=== PATIENT | male | born 1945 | race Two or more races ===

== ENCOUNTER 2020-07-18 14:30 | Inpatient (IN) | payer MEDICARE, MEDICAID ==
[~2020-07-18] VITALS: Ht 167.6 cm; Wt 119.8 kg
[~2020-07-18 14:30] MED LIST: ALLO-51; ALPR0.25; AMLO-496 PO; ATOR10TA; DOXA2TAB; MET25T; METO25TA36 PO; OMEP20CA74 PO; PANT40TA2 PO; PRO125RS
[2020-07-18 15:23] LABS: Basophils # (auto) 0.1 10 ^3/uL (0-0.2); Basophils % (auto) 0.7 % (0.0-2.0); Eosinophils # (auto) 0.1 10 ^3/uL (0-0.8); Eosinophils % (auto) 1.7 % (0.0-7.0); Hematocrit 32.6 % (41.0-53.0); Hemoglobin 11.1 g/dL (13.5-17.5); Lymphocytes # (auto) 1.8 10 ^3/uL (0.4-5.4); Lymphocytes % (auto) 22.2 % (10.0-50.0); Mean Corpuscular Hemoglobin 31.4 pg (28.0-32.0); Mean Corpuscular Hgb Conc. 34.1 g/dL (32.0-36.0); Mean Corpuscular Volume 92.2 fL (80.0-100.0); Monocytes # (auto) 0.7 10 ^3/uL (0-1.3); Monocytes % (auto) 8.2 % (0.0-12.0); Neutrophils # (auto) 5.6 10 ^3/uL (1.6-8.6); Neutrophils % (auto) 67.2 % (37.0-80.0); Red Blood Cells 3.54 10^6/uL (4.5-5.90); Red Cell Distribution Width 14.7 % (11.8-14.3); White Blood Cell 8.3 10^3/uL (4.4-10.8)
[2020-07-18 16:43] LABS: Albumin 3.7 g/dL (3.4-5.0); Calcium 8.3 mg/dL (8.5-10.1); Potassium 3.8 mmol/L (3.5-5.1)
[2020-07-18 16:49] LABS: BUN/Creatinine Ratio 10.5; Bilirubin, Total 0.4 mg/dL (0.2-1.0); Total Protein 7.5 g/dL (6.4-8.2)
[2020-07-18 19:06] LABS: INR 0.97 (0.9-1.15)
[2020-07-18 19:06] LABS: Urine Bacteria NONE SEEN /hpf (None Seen); Urine Blood Negative /uL (Negative); Urine WBC 1 /hpf (0 - 3)
[2020-07-18 19:16] LABS: Alcohol, Urine < 3.0 mg/dL (0-10); Amphetamine Screen, Urine NEGATIVE (NEGATIVE); Barbiturate Scree,Urine NEGATIVE (NEGATIVE); Benzodiazephine Screen, Urine NEGATIVE (NEGATIVE); Cannabinoid Screen, Urine NEGATIVE (NEGATIVE); Cocaine Screen, Urine NEGATIVE (NEGATIVE); Opiate Scree,Urine NEGATIVE (NEGATIVE); Phencyclidine Screen, Urine NEGATIVE (NEGATIVE)
[2020-07-18] MEDS ORDERED: ASPirin 325 MG TAB PO ONE (20:00)
[2020-07-18] MEDS ORDERED: ENOXAPARIN SOD 100 MG/1 ML SYRINGE SC ONE (22:00)
[2020-07-18] MEDS ORDERED: MORPHINE SULFATE 4 MG/ML SYR/VIAL IV PRN (22:45)
[2020-07-18] MEDS ORDERED: NITROGLYCERIN 0.4 MG SL TAB SL PRN (22:45)
[2020-07-18] MEDS ORDERED: DOCUSATE SOD 100 MG CAP PO PRN (22:45)
[2020-07-18] MEDS ORDERED: ACETAMINOPHEN 325 MG TAB PO PRN (22:45)
[2020-07-18] MEDS ORDERED: HYDROcodone-ACET 5/325MG TAB PO PRN (22:45)
[2020-07-18] MEDS ORDERED: ONDANSETRON HCL 4 MG/2 ML VIAL IV PRN (22:45)
[2020-07-18] MEDS ORDERED: MORPHINE SULFATE INJECTION 2 MG/ML SYRG IV PRN (22:45)
[2020-07-18] MEDS ORDERED: hydrALAZINE HCL 20 MG/ML VL IV PRN (22:45)
[2020-07-19 02:13] VITALS: BP 133/90
[2020-07-19 05:00] VITALS: BP 142/87
[2020-07-19 05:11] VITALS: BP 133/90
[2020-07-19] MEDS: SODIUM CHLOR 0.9% PF (SALINE LOCK) 10ML VIAL/SYR IV SCH ×3 (06:01→21:25)
[2020-07-19 07:56] VITALS: BP 141/87
[2020-07-19 08:21] LABS: Basophils # (auto) 0 10 ^3/uL (0-0.2); Basophils % (auto) 0.4 % (0.0-2.0); Eosinophils # (auto) 0.2 10 ^3/uL (0-0.8); Eosinophils % (auto) 2.8 % (0.0-7.0); Hematocrit 29.7 % (41.0-53.0); Lymphocytes # (auto) 2.1 10 ^3/uL (0.4-5.4); Lymphocytes % (auto) 26.8 % (10.0-50.0); Mean Corpuscular Hemoglobin 31.2 pg (28.0-32.0); Mean Corpuscular Hgb Conc. 33.7 g/dL (32.0-36.0); Mean Corpuscular Volume 92.5 fL (80.0-100.0); Monocytes # (auto) 0.7 10 ^3/uL (0-1.3); Monocytes % (auto) 8.8 % (0.0-12.0); Neutrophils # (auto) 4.8 10 ^3/uL (1.6-8.6); Neutrophils % (auto) 61.2 % (37.0-80.0); Red Blood Cells 3.21 10^6/uL (4.5-5.90); Red Cell Distribution Width 14.7 % (11.8-14.3); White Blood Cell 7.8 10^3/uL (4.4-10.8)
[2020-07-19 08:37] LABS: Albumin 3.1 g/dL (3.4-5.0); Potassium 3.9 mmol/L (3.5-5.1)
[2020-07-19 08:44] LABS: BUN/Creatinine Ratio 10.9; Bilirubin, Total 0.4 mg/dL (0.2-1.0); Total Protein 6.3 g/dL (6.4-8.2)
[2020-07-19] MEDS: ASPirin 81 mg TAB PO SCH (10:44)
[2020-07-19] MEDS: MULTIPLE VITAMIN TAB PO SCH (10:45)
[2020-07-19] MEDS: ASCORBIC ACID 500 MG TAB PO SCH ×2 (10:45→21:25)
[2020-07-19] MEDS: FAMOTIDINE (10MG/ML) 2ML VL IV SCH ×2 (10:45→21:25)
[2020-07-19] MEDS: B-COMPLEX W/ C & FOLIC ACID(NEPHROVITE TAB) PO SCH (10:45)
[2020-07-19] MEDS: ZINC SULFATE 220mg CAP or TAB PO SCH (10:45)
[2020-07-19] MEDS: HEPARIN SODIUM (PORCINE) 5000 UNITS/ML 1ML VIAL SC SCH ×2 (11:11→21:26)
[2020-07-19 16:00] VITALS: BP 151/100
[2020-07-19 23:31] VITALS: BP 124/79
[2020-07-20 05:00] VITALS: BP 141/94
[2020-07-20 06:40] LABS: Basophils # (auto) 0.1 10 ^3/uL (0-0.2); Basophils % (auto) 0.8 % (0.0-2.0); Eosinophils # (auto) 0.2 10 ^3/uL (0-0.8); Eosinophils % (auto) 3.3 % (0.0-7.0); Hematocrit 26.7 % (41.0-53.0); Hemoglobin 9.2 g/dL (13.5-17.5); Lymphocytes # (auto) 2.3 10 ^3/uL (0.4-5.4); Lymphocytes % (auto) 31.1 % (10.0-50.0); Mean Corpuscular Hemoglobin 31.7 pg (28.0-32.0); Mean Corpuscular Hgb Conc. 34.5 g/dL (32.0-36.0); Mean Corpuscular Volume 91.9 fL (80.0-100.0); Monocytes # (auto) 0.6 10 ^3/uL (0-1.3); Monocytes % (auto) 8.8 % (0.0-12.0); Neutrophils # (auto) 4.1 10 ^3/uL (1.6-8.6); Red Blood Cells 2.91 10^6/uL (4.5-5.90); Red Cell Distribution Width 14.6 % (11.8-14.3); White Blood Cell 7.3 10^3/uL (4.4-10.8)
[2020-07-20 07:02] LABS: Potassium 3.7 mmol/L (3.5-5.1)
[2020-07-20 07:13] LABS: BUN/Creatinine Ratio 10.7; Bilirubin, Total 0.4 mg/dL (0.2-1.0)
[2020-07-20 08:00] VITALS: BP 141/96
[2020-07-20] MEDS ORDERED: ADENOSINE 69 MG in GIVE UN-DILUTED 0 ML IV STA ×2 (08:08→09:22)
[2020-07-20] MEDS: ZINC SULFATE 220mg CAP or TAB PO SCH (10:00)
[2020-07-20] MEDS: FAMOTIDINE (10MG/ML) 2ML VL IV SCH ×2 (10:00→21:53)
[2020-07-20] MEDS: HEPARIN SODIUM (PORCINE) 5000 UNITS/ML 1ML VIAL SC SCH ×2 (10:00→21:54)
[2020-07-20] MEDS: MULTIPLE VITAMIN TAB PO SCH (10:00)
[2020-07-20] MEDS: ASPirin 81 mg TAB PO SCH (10:00)
[2020-07-20] MEDS: ASCORBIC ACID 500 MG TAB PO SCH ×2 (10:00→21:53)
[2020-07-20] MEDS: B-COMPLEX W/ C & FOLIC ACID(NEPHROVITE TAB) PO SCH (10:00)
[2020-07-20] MEDS ORDERED: LIDOCAINE 2%HCL (LOCAL ANESTH.) INJ 20ML MDV ONE (11:51)
[2020-07-20] MEDS ORDERED: HEPARIN IN NS 1000Units/500mL 0 ML ONE (11:51)
[2020-07-20] MEDS: SODIUM CHLOR 0.9% PF (SALINE LOCK) 10ML VIAL/SYR IV SCH ×2 (14:00→14:48)
[2020-07-20 16:11] VITALS: BP 132/73
[2020-07-20] MEDS ORDERED: LEVALBUTEROL HCL 1.25 MG/3 ML NEB ONE (21:12)
[2020-07-20] MEDS ORDERED: IPRATROPIUM BROM 0.5 MG/2.5ML INH SOL ONE (21:13)
[2020-07-20 22:00] VITALS: BP 145/84
[2020-07-21] VITALS: BP 145/84
[2020-07-21 05:00] VITALS: BP 151/100
[2020-07-21] MEDS: SODIUM CHLOR 0.9% PF (SALINE LOCK) 10ML VIAL/SYR IV SCH ×3 (05:57→21:10)
[2020-07-21 07:40] VITALS: BP 144/79
[2020-07-21 09:25] LABS: Basophils # (auto) 0.1 10 ^3/uL (0-0.2); Basophils % (auto) 0.6 % (0.0-2.0); Eosinophils # (auto) 0.2 10 ^3/uL (0-0.8); Eosinophils % (auto) 2.6 % (0.0-7.0); Hematocrit 31.7 % (41.0-53.0); Hemoglobin 10.5 g/dL (13.5-17.5); Lymphocytes # (auto) 2.8 10 ^3/uL (0.4-5.4); Lymphocytes % (auto) 32.7 % (10.0-50.0); Mean Corpuscular Hemoglobin 30.9 pg (28.0-32.0); Mean Corpuscular Volume 93.7 fL (80.0-100.0); Monocytes # (auto) 0.5 10 ^3/uL (0-1.3); Monocytes % (auto) 5.6 % (0.0-12.0); Neutrophils % (auto) 58.5 % (37.0-80.0); Red Blood Cells 3.39 10^6/uL (4.5-5.90); Red Cell Distribution Width 14.9 % (11.8-14.3); White Blood Cell 8.6 10^3/uL (4.4-10.8)
[2020-07-21 09:45] LABS: Calcium 8.8 mg/dL (8.5-10.1); Potassium 4.2 mmol/L (3.5-5.1)
[2020-07-21 09:47] LABS: BUN/Creatinine Ratio 12.3
[2020-07-21] MEDS: MULTIPLE VITAMIN TAB PO SCH (10:00)
[2020-07-21] MEDS: ASPirin 81 mg TAB PO SCH (10:00)
[2020-07-21] MEDS: ASCORBIC ACID 500 MG TAB PO SCH ×2 (10:00→21:06)
[2020-07-21] MEDS: B-COMPLEX W/ C & FOLIC ACID(NEPHROVITE TAB) PO SCH (10:00)
[2020-07-21] MEDS ORDERED: amLODIPine BESYLATE 5 MG TAB PO ONE (11:00)
[2020-07-21] MEDS ORDERED: ALLOPURINOL 100 MG TAB PO ONE (11:00)
[2020-07-21] MEDS ORDERED: methylPREDNISolone SOD SUCC 125 MG/2 ML VL IV ONE (11:00)
[2020-07-21] MEDS ORDERED: ALPRAZolam 0.25 MG TAB PO ONE (11:15)
[2020-07-21] MEDS ORDERED: ALPRAZolam 0.25 MG TAB PO PRN (11:15)
[2020-07-21] MEDS: ALBUTEROL SULF 2.5 MG/0.5ML(0.5%) NEB SOLN NEB SCH ×2 (11:35→18:49)
[2020-07-21] MEDS: IPRATROPIUM BROM 0.5 MG/2.5ML INH SOL NEB SCH ×2 (11:35→18:49)
[2020-07-21] MEDS ORDERED: AZITHROMYCIN 250 MG TAB PO ONE (13:15)
[2020-07-21 16:00] VITALS: BP 135/78
[2020-07-21] MEDS: FAMOTIDINE 20 MG TAB PO SCH (21:06)
[2020-07-21 21:31] VITALS: BP 140/75
[2020-07-21] MEDS ORDERED: DOXAZOSIN MESYL 2 MG TAB PO SCH (22:00)
[2020-07-22 00:29] VITALS: BP 140/70
[2020-07-22 05:00] VITALS: BP 128/74
[2020-07-22] MEDS: SODIUM CHLOR 0.9% PF (SALINE LOCK) 10ML VIAL/SYR IV SCH (06:00)
[2020-07-22 08:00] VITALS: BP 142/69
[2020-07-22] MEDS ORDERED: predniSONE 20 MG TAB PO SCH (10:00)
[2020-07-22] MEDS ORDERED: amLODIPine BESYLATE 5 MG TAB PO SCH (10:00)
[2020-07-22] MEDS ORDERED: ALLOPURINOL 100 MG TAB PO SCH (10:00)
[2020-07-22] MEDS ORDERED: AZITHROMYCIN 250 MG TAB PO SCH (10:00)
[2020-07-22] MEDS: MULTIPLE VITAMIN TAB PO SCH (10:04)
[2020-07-22] MEDS: ASCORBIC ACID 500 MG TAB PO SCH (10:04)
[2020-07-22] MEDS: B-COMPLEX W/ C & FOLIC ACID(NEPHROVITE TAB) PO SCH (10:06)
[2020-07-22] MEDS: ASPirin 81 mg TAB PO SCH (10:06)
[2020-07-22] MEDS: FAMOTIDINE 20 MG TAB PO SCH (10:07)
[2020-07-22 11:59] VITALS: BP 142/69
[2020-07-22 12:29] VITALS: BP 142/69
[2020-07-22 13:00] VITALS: BP 143/72
[2020-07-22] MEDS: ALBUTEROL SULF 2.5 MG/0.5ML(0.5%) NEB SOLN NEB SCH (13:07)
[2020-07-22] MEDS: IPRATROPIUM BROM 0.5 MG/2.5ML INH SOL NEB SCH (13:07)
[2020-07-22] MEDS ORDERED: ETOMIDATE (2MG/ML) 20ML VIAL IV ONE (15:12)
[2020-07-22] MEDS ORDERED: SUCCINYLCHOLINE CHLORIDE 20 MG/ML 10ML VIAL IV ONE (15:12)
[2020-10-12] MEDS ORDERED: PANT40T PO (12:21)
[2020-10-12] MEDS ORDERED: METO-6 PO (12:21)
== END 2020-07-22 15:54 | disposition home or self-care (01) | DRG 140 ==
LOC: EDUNIT# 14:30 → ER 14:30 → EDBD 14:30 → TELE 22:45 → TELE-EAST 07-19 02:13 → TELE-CENTR 07-19 21:30
PROVIDERS: ADMIT Nurse Practitioner Family; ATTEND Internal Medicine
DX: J44.1 Chronic obstructive pulmonary disease with (acute) exacerbation (principal); E44.0 Moderate protein-calorie malnutrition; N18.4 Chronic kidney disease, stage 4 (severe); R07.89 Other chest pain; I12.9 Hypertensive chronic kidney disease with stage 1 through stage 4 chronic kidney disease, or unspecified chronic kidney disease; R62.7 Adult failure to thrive; D63.8 Anemia in other chronic diseases classified elsewhere; Z20.822 Contact with and (suspected) exposure to COVID-19; M10.9 Gout, unspecified; F41.9 Anxiety disorder, unspecified; E78.5 Hyperlipidemia, unspecified; I70.0 Atherosclerosis of aorta; F17.210 Nicotine dependence, cigarettes, uncomplicated; Z82.49 Family history of ischemic heart disease and other diseases of the circulatory system; Z68.41 Body mass index [BMI] 40.0-44.9, adult; Z79.899 Other long term (current) drug therapy
CPT/HCPCS: 36415; 70450; 71045; 78452; 80048; 80053; 80307; 81001; 83735; 83880; 84443; 84484; 84550; 85025; 85610; 87426; 93005; 93017; 93306; 94640; G0378; J0153; J0330; J3490